=== PATIENT | female | born 1990 | race Caucasian/White ===

== ENCOUNTER 2020-02-22 12:16 | Emergency (ER) | payer SELFPAY ==
[~2020-02-22] VITALS: Ht 160 cm; Wt 93.6 kg
[2020-02-22 12:19] VITALS: BP 120/86
--- NOTE | 2020-02-22 12:40 | NUR ---
TO ROOM AT THIS TIME
--- NOTE | 2020-02-22 12:43 | NUR ---
PT AMBULATED BACK TO ROOM WITHOUT DIFFICULTY. FREQUENT COUGH NOTED.
[2020-02-22 13:22] LABS: BASOPHILS % (AUTO) 1 % (0-1); EOSINOPHILS % (AUTO) 4 % (1-7); LYMPHOCYTES % (AUTO) 20 % (22-44); MEAN CORPUSCULAR HEMOGLOBIN 31.1 pg (27.0-34.8); MEAN CORPUSCULAR HGB CONC 33.9 g/dL (32.4-35.8); MEAN PLATELET VOLUME 8.7 fL (7.4-10.4); MONOCYTES % (AUTO) 7 % (2-9); NEUTROPHILS % (AUTO) 69 % (42-75); PLATELET COUNT 248 x10^3/uL (130-400); RED BLOOD COUNT 4.75 x10^6/uL (3.82-5.3); RED CELL DISTRIBUTION WIDTH 13.5 % (9.6-15.2)
[2020-02-22 13:23] LABS: MD NO
[2020-02-22 13:32] LABS: ALANINE AMINOTRANSFERASE 22 U/L (12-78); ALBUMIN 3.7 g/dL (3.4-5.0); ANION GAP 5 mmol/L (5-15); CALCIUM 8.7 mg/dL (8.5-10.1); CHLORIDE 111 mmol/L (98-107); CREATININE 0.71 mg/dL (0.55-1.02)
[2020-02-22 13:34] LABS: ALKALINE PHOSPHATASE 80 U/L (45-117); BILIRUBIN,TOTAL 0.6 mg/dL (0.2-1.0); TOTAL PROTEIN 7.2 g/dL (6.4-8.2)
[2020-02-22] MEDS ORDERED: ALBUTEROL SULFATE 2.5 MG/3 ML ONE (13:46)
--- NOTE | 2020-02-22 13:49 | NUR ---
pt getting breathing treatment. tolerating well
[2020-02-22] MEDS ORDERED: ALBUTEROL SULFATE 2.5 MG/3 ML NPPB SCH (14:00)
--- NOTE | 2020-02-22 14:38 | NUR ---
PT STATES SHE STILL FEELS SOB, CHEST TIGHTNESS AFTER BREATHING TX. WHEEZING NOTED. SPO2 95-99% ON RA, HR 90s-100s. PT CRYING/ANXIOUS ABOUT HER CONDITION AND HER COUSIN WHO IS CURRENTLY IN ICU. ERP AT NOW FOR RECHECK.
--- NOTE | 2020-02-22 15:09 | NUR ---
PT'S BREATHING WNL NOW BUT PT STILL ANXIOUS/CRYING AT TIMES. D/C INSTRUCTIONS, MEDS & F/U APPT RV'WD WITH PT, SHE VERBALIZES UNDERSTANDING. RX GIVEN X1. INSTRUCTED PT TO RETURN TO ED FOR WORSENING SOB OR OTHER CONCERNING SYMPTOMS. PT AMBULATED OUT WITHOUT DIFFICULTY.
== END 2020-02-22 15:10 | disposition home or self-care (01) ==
LOC: ED 14:51
DX: R06.00 Dyspnea, unspecified (principal); Z20.828 Contact with and (suspected) exposure to other viral communicable diseases; I51.7 Cardiomegaly
CPT/HCPCS: 36415; 71045; 80053; 82728; 82962; 85025; 87635; 93005; 99285; J7613

== ENCOUNTER 2020-08-29 15:28 | Emergency (ER) | payer MEDICAID, OTHER ==
[~2020-08-29] VITALS: Ht 162.6 cm; Wt 81.0 kg
--- NOTE | 2020-08-29 16:08 | NUR ---
crop roller: pt from lobby to room 13
[2020-08-29] MEDS ORDERED: LORazepam 1MG TABLET ONE (16:25)
[2020-08-29] MEDS ORDERED: ALBUTEROL/IPRATROPIUM 2.5MG/0.5MG, 3 ML ONE (16:25)
[2020-08-29] MEDS ORDERED: LORazepam 1MG TABLET PO ONE (16:30)
[2020-08-29] MEDS ORDERED: ALBUTEROL/IPRATROPIUM 2.5MG/0.5MG, 3 ML NPPB ONE (16:30)
--- NOTE | 2020-08-29 16:37 | NUR ---
IN SERVICE COORDINATOR PER JUN. XRAY COMPLETE.
[2020-08-29 16:53] LABS: BASOPHILS % (AUTO) 1 % (0-1); EOSINOPHILS % (AUTO) 3 % (1-7); LYMPHOCYTES % (AUTO) 22 % (22-44); MD NO; MEAN CORPUSCULAR HEMOGLOBIN 31.5 pg (27.0-34.8); MEAN CORPUSCULAR HGB CONC 35.1 g/dL (32.4-35.8); MEAN PLATELET VOLUME 8.4 fL (7.4-10.4); MONOCYTES % (AUTO) 8 % (2-9); NEUTROPHILS % (AUTO) 66 % (42-75); PLATELET COUNT 351 x10^3/uL (130-400); RED BLOOD COUNT 4.86 x10^6/uL (3.82-5.3); RED CELL DISTRIBUTION WIDTH 13.7 % (9.6-15.2)
[2020-08-29 17:02] LABS: ALANINE AMINOTRANSFERASE 24 U/L (12-78); ALBUMIN 3.9 g/dL (3.4-5.0); ANION GAP 5 mmol/L (5-15); CHLORIDE 109 mmol/L (98-107); CREATININE 0.89 mg/dL (0.55-1.02)
[2020-08-29 17:05] LABS: ALKALINE PHOSPHATASE 85 U/L (45-117); BILIRUBIN,TOTAL 0.7 mg/dL (0.2-1.0); TOTAL PROTEIN 7.2 g/dL (6.4-8.2)
--- NOTE | 2020-08-29 17:14 | NUR ---
DIET TRAY ORDERED PER ERP VERBAL ORDER.
[2020-08-29 17:24] VITALS: BP 115/73
--- NOTE | 2020-08-29 17:24 | NUR ---
FORESTRY SUPPORT SPECIALIST PER MAR.
--- NOTE | 2020-08-29 17:24 | NUR ---
PT STATES FEELS A LITTLE BETTER AFTER NEB TX.
--- NOTE | 2020-08-29 17:41 | NUR ---
ALL RESULTS ARE BACK AT THIS TIME. CHART UP FOR RECHECK. DIET TRAY DELIVERED.
== END 2020-08-29 18:31 | disposition home or self-care (01) ==
LOC: ED 17:13
DX: J45.41 Moderate persistent asthma with (acute) exacerbation (principal); R06.00 Dyspnea, unspecified; R07.89 Other chest pain; R00.0 Tachycardia, unspecified
CPT/HCPCS: 36415; 71045; 80053; 85025; 93005; 94640; 99285; J7512

== ENCOUNTER 2020-09-12 23:19 | Emergency (ER) | payer MEDICAID ==
[~2020-09-12] VITALS: Ht 162.6 cm; Wt 81.5 kg
[2020-09-12] MEDS ORDERED: ONDANSETRON 2MG/ML, 2ML ONE (23:52)
[2020-09-12] MEDS ORDERED: MORPHINE SULFATE 4 MG/ML, 1ML ONE (23:52)
[2020-09-12 23:59] LABS: BASOPHILS % (AUTO) 0 % (0-1); EOSINOPHILS % (AUTO) 0 % (1-7); LYMPHOCYTES % (AUTO) 3 % (22-44); MEAN CORPUSCULAR HEMOGLOBIN 31.7 pg (27.0-34.8); MEAN CORPUSCULAR HGB CONC 34.6 g/dL (32.4-35.8); MEAN PLATELET VOLUME 8.3 fL (7.4-10.4); MONOCYTES % (AUTO) 4 % (2-9); NEUTROPHILS % (AUTO) 93 % (42-75); PLATELET COUNT 268 x10^3/uL (130-400); RED BLOOD COUNT 4.93 x10^6/uL (3.82-5.3); RED CELL DISTRIBUTION WIDTH 14.4 % (9.6-15.2)
[2020-09-13] MEDS ORDERED: ONDANSETRON 2MG/ML, 2ML IVPush ONE
[2020-09-13] MEDS ORDERED: MORPHINE SULFATE 4 MG/ML, 1ML IVPush PRN
[2020-09-13 00:09] LABS: ALANINE AMINOTRANSFERASE 32 U/L (12-78); ALBUMIN 3.8 g/dL (3.4-5.0); ANION GAP 8 mmol/L (5-15); CALCIUM 9.1 mg/dL (8.5-10.1); CHLORIDE 103 mmol/L (98-107); CREATININE 0.76 mg/dL (0.55-1.02)
[2020-09-13 00:14] LABS: ALKALINE PHOSPHATASE 93 U/L (45-117); BILIRUBIN,TOTAL 1.2 mg/dL (0.2-1.0)
--- NOTE | 2020-09-13 00:19 | NUR ---
PT TO IMAGING AT THIS TIME
[2020-09-13 00:22] LABS: MD SCAN
[2020-09-13 00:24] LABS: MICROSCOPIC INDICATED
[2020-09-13] MEDS ORDERED: OMNIPAQUE 350 MG/ML, 100ML BOTTLE ONE (00:30)
--- NOTE | 2020-09-13 00:32 | NUR ---
PT BACK FROM IMAGING
[2020-09-13] MEDS ORDERED: CEFDINIR 300 MG CAPSULE PO ONE (01:00)
[2020-09-13] MEDS ORDERED: CEFDINIR 300 MG CAPSULE ONE (01:09)
[2020-09-13] MEDS ORDERED: ACETAMINOPHEN 500 MG TABLET ONE (01:14)
[2020-09-13 01:21] VITALS: BP 125/53
[2020-09-13] MEDS ORDERED: ACETAMINOPHEN 500 MG TABLET PO ONE (01:30)
== END 2020-09-13 01:51 | disposition home or self-care (01) ==
LOC: ED 09-13 01:15
DX: K52.9 Noninfective gastroenteritis and colitis, unspecified (principal); N30.00 Acute cystitis without hematuria; R10.84 Generalized abdominal pain; R11.2 Nausea with vomiting, unspecified; J45.41 Moderate persistent asthma with (acute) exacerbation; F17.210 Nicotine dependence, cigarettes, uncomplicated
CPT/HCPCS: 36415; 74177; 80053; 81001; 83690; 84703; 85025; 87086; 96374; 96375; 99285; 99406; J2270; J2405; Q9967

== ENCOUNTER 2020-09-13 16:56 | Emergency (ER) | payer MEDICAID ==
[~2020-09-13] VITALS: Ht 162.6 cm; Wt 81.1 kg
[2020-09-13 17:05] VITALS: BP 126/75
[2020-09-13] MEDS ORDERED: ALBUTEROL/IPRATROPIUM 2.5MG/0.5MG, 3 ML NPPB ONE (17:30)
[2020-09-13 17:36] LABS: BASOPHILS % (AUTO) 0 % (0-1); EOSINOPHILS % (AUTO) 2 % (1-7); LYMPHOCYTES % (AUTO) 9 % (22-44); MEAN CORPUSCULAR HEMOGLOBIN 31.5 pg (27.0-34.8); MEAN CORPUSCULAR HGB CONC 33.9 g/dL (32.4-35.8); MEAN PLATELET VOLUME 8.6 fL (7.4-10.4); MONOCYTES % (AUTO) 4 % (2-9); NEUTROPHILS % (AUTO) 85 % (42-75); PLATELET COUNT 272 x10^3/uL (130-400); RED BLOOD COUNT 4.79 x10^6/uL (3.82-5.3); RED CELL DISTRIBUTION WIDTH 14.5 % (9.6-15.2)
[2020-09-13 17:42] LABS: ALANINE AMINOTRANSFERASE 39 U/L (12-78); ALBUMIN 3.3 g/dL (3.4-5.0); ANION GAP 8 mmol/L (5-15); CALCIUM 8.8 mg/dL (8.5-10.1); CHLORIDE 105 mmol/L (98-107); CREATININE 0.83 mg/dL (0.55-1.02)
[2020-09-13 17:47] LABS: ALKALINE PHOSPHATASE 111 U/L (45-117); TOTAL PROTEIN 7.4 g/dL (6.4-8.2)
--- NOTE | 2020-09-13 17:50 | NUR ---
CC UA OBTAINED BY RADIOLOGY. COLLECTED AND SENT TO LAB BY TRAUMA THERAPIST
[2020-09-13 18:00] LABS: MD SCAN
[2020-09-13 18:09] LABS: MICROSCOPIC INDICATED
--- NOTE | 2020-09-13 20:36 | NUR ---
HAT BRAIDER: NIL X 1 WHEN CALLED FOR ROOM.
--- NOTE | 2020-09-13 21:09 | NUR ---
CRIB PAD MAKER: NIL X 2 WHEN CALLED FOR ROOM.
--- NOTE | 2020-09-13 21:25 | NUR ---
PROGRAM MEDICAL DIRECTOR: NIL X 3 WHEN CALLED FOR ROOM.
== END 2020-09-13 21:27 | disposition left against medical advice (07) ==
LOC: ED 21:20
DX: R10.30 Lower abdominal pain, unspecified (principal); R07.89 Other chest pain
CPT/HCPCS: 36415; 71045; 80053; 81001; 83880; 84703; 85025; 87086; 93005; 99285

== ENCOUNTER 2020-09-17 09:11 | Emergency (ER) | payer MEDICAID ==
[~2020-09-17] VITALS: Ht 162.6 cm; Wt 79.0 kg
--- NOTE | 2020-09-17 09:30 | NUR ---
PT HAS CO ABDOMINAL FLANK PAIN WORSENING. PREVIOUS UTI AND HAS NOT FILLED ABX.
[2020-09-17] MEDS ORDERED: ONDANSETRON 2MG/ML, 2ML ONE (09:45)
[2020-09-17] MEDS ORDERED: MORPHINE SULFATE 4 MG/ML, 1ML ONE ×2 (09:45→12:06)
[2020-09-17] MEDS: MORPHINE SULFATE 4 MG/ML, 1ML IVPush PRN ×2 (09:52→12:09)
--- NOTE | 2020-09-17 09:56 | NUR ---
IV, LABS, BLOOD CULTURES DRAWN. IVF AND MEDICATED FOR PAIN.
[2020-09-17] MEDS ORDERED: SODIUM CHLORIDE 0.9% 1,000ML IVBOLUS ONE (10:00)
[2020-09-17] MEDS ORDERED: SODIUM CHLORIDE FLUSH 10ML SYR IVF ONE (10:00)
[2020-09-17] MEDS ORDERED: ONDANSETRON 2MG/ML, 2ML IVPush ONE (10:00)
--- NOTE | 2020-09-17 10:03 | NUR ---
PT TO BATHROOM W STEADY GAIT. UA SAMPLE OBTAINED
[2020-09-17 10:06] LABS: BASOPHILS % (AUTO) 1 % (0-1); EOSINOPHILS % (AUTO) 3 % (1-7); LYMPHOCYTES % (AUTO) 23 % (22-44); MEAN CORPUSCULAR HEMOGLOBIN 31.3 pg (27.0-34.8); MEAN CORPUSCULAR HGB CONC 34.5 g/dL (32.4-35.8); MEAN PLATELET VOLUME 7.9 fL (7.4-10.4); MONOCYTES % (AUTO) 8 % (2-9); NEUTROPHILS % (AUTO) 65 % (42-75); PLATELET COUNT 336 x10^3/uL (130-400); RED BLOOD COUNT 4.79 x10^6/uL (3.82-5.3); RED CELL DISTRIBUTION WIDTH 13.7 % (9.6-15.2)
[2020-09-17 10:07] LABS: MD NO
[2020-09-17 10:14] LABS: ALANINE AMINOTRANSFERASE 25 U/L (12-78); ALBUMIN 3.5 g/dL (3.4-5.0); ANION GAP 7 mmol/L (5-15); CALCIUM 9.1 mg/dL (8.5-10.1); CHLORIDE 107 mmol/L (98-107); CREATININE 0.66 mg/dL (0.55-1.02)
[2020-09-17 10:16] LABS: ALKALINE PHOSPHATASE 85 U/L (45-117); BILIRUBIN,TOTAL 0.7 mg/dL (0.2-1.0); TOTAL PROTEIN 7.5 g/dL (6.4-8.2)
--- NOTE | 2020-09-17 10:39 | NUR ---
PT TO IMAGING
[2020-09-17] MEDS ORDERED: OMNIPAQUE 350 MG/ML, 75ML BOTTLE ONE (10:51)
[2020-09-17 10:56] LABS: MICROSCOPIC INDICATED
--- NOTE | 2020-09-17 11:00 | NUR ---
PT BAKC FROM CTA
--- NOTE | 2020-09-17 12:07 | NUR ---
PT HAS CO ABDOMINAL PAIN. MEDICATED PER EMAR
[2020-09-17] MEDS ORDERED: FOSFOMYCIN 3 GM PACKET PO ONE (13:00)
[2020-09-17] MEDS ORDERED: FOSFOMYCIN 3 GM PACKET ONE (13:08)
[2020-09-17 13:13] VITALS: BP 118/84
--- NOTE | 2020-09-17 13:24 | NUR ---
IV removed with tip intact. Patient given discharge instructions and prescription and they have confirmed that they understand the instructions. Patient stable and ambulatory with steady gait from ED to taxi.
== END 2020-09-17 13:25 | disposition home or self-care (01) ==
LOC: ED 09:35
DX: N30.00 Acute cystitis without hematuria (principal); R00.0 Tachycardia, unspecified; F17.200 Nicotine dependence, unspecified, uncomplicated; J45.909 Unspecified asthma, uncomplicated
CPT/HCPCS: 36415; 71045; 71275; 80053; 81001; 83605; 83690; 85025; 85379; 87040; 87086; 96361; 96374; 96375; 96376; 99285; J2270; J2405; J7030; Q9967

== ENCOUNTER 2020-10-04 13:25 | Emergency (ER) | payer MEDICAID ==
[~2020-10-04] VITALS: Ht 157.5 cm; Wt 78.4 kg
--- NOTE | 2020-10-04 14:28 | NUR ---
patient called to recheck vitals @1428 but was not in lobby.
--- NOTE | 2020-10-04 14:56 | NUR ---
PT AMBULATORY TO ROOM FROM [facility], PT CHANGED INTO GOWN, MONITORS IN PLACE. PT C/O NO BM FOR 1 WEEK, PT STATES SHES "ABOUT TO GIVE IN MY BUTT"
--- NOTE | 2020-10-04 15:50 | NUR ---
PT TO IMAGING
--- NOTE | 2020-10-04 16:11 | NUR ---
PT TO BR WITH UPRIGHT STEADY GAIT.
--- NOTE | 2020-10-04 16:21 | NUR ---
PT LAYING ON MANISH GARCIA. CALL LIGHT WITHIN REACH. CHART UP FOR RECHECK
[2020-10-04] MEDS ORDERED: LORazepam 1MG TABLET ONE (16:50)
[2020-10-04] MEDS ORDERED: DIAZEPAM 5 MG TABLET ONE (16:52)
[2020-10-04] MEDS ORDERED: DIAZEPAM 5 MG TABLET PO ONE (17:00)
[2020-10-04 17:01] VITALS: BP 122/63
--- NOTE | 2020-10-04 17:24 | NUR ---
PA AND MED STUDENT AT FOR PROCEDURE
--- NOTE | 2020-10-04 17:42 | NUR ---
Patient given discharge instructions and they have confirmed that they understand the instructions. Patient ambulatory with steady gait.
== END 2020-10-04 17:52 | disposition home or self-care (01) ==
LOC: ED 17:45
DX: K59.00 Constipation, unspecified (principal); R11.2 Nausea with vomiting, unspecified
CPT/HCPCS: 74021; 99284

== ENCOUNTER 2020-12-26 15:12 | Emergency (ER) | payer MEDICAID ==
[~2020-12-26] VITALS: Ht 162.6 cm; Wt 79.5 kg
[2020-12-26] MEDS ORDERED: LIDOCAINE-MPF 1%, 5ML INFIL ONE (15:30)
[2020-12-26 16:04] LABS: BASOPHILS % (AUTO) 1 % (0-1); EOSINOPHILS % (AUTO) 4 % (1-7); LYMPHOCYTES % (AUTO) 9 % (22-44); MEAN CORPUSCULAR HEMOGLOBIN 29.7 pg (27.0-34.8); MEAN CORPUSCULAR HGB CONC 34.1 g/dL (32.4-35.8); MEAN PLATELET VOLUME 8.3 fL (7.4-10.4); MONOCYTES % (AUTO) 5 % (2-9); NEUTROPHILS % (AUTO) 81 % (42-75); PLATELET COUNT 368 x10^3/uL (130-400); RED BLOOD COUNT 4.48 x10^6/uL (3.82-5.3); RED CELL DISTRIBUTION WIDTH 14.2 % (9.6-15.2)
--- NOTE | 2020-12-26 16:50 | NUR ---
slat basket maker helper machine note: Pt to room from lobby.
[2020-12-26] MEDS ORDERED: LIDOCAINE-MPF 1%, 5ML ONE (17:20)
--- NOTE | 2020-12-26 17:30 | NUR ---
LIDOCAINE PROVIDED TO PA. I&D SET UP AT BS. PT REPORTS SHOOTING UP HEROIN AND METH INTO BOTH ARMS AND NECK. PT USING DIRTY NEEDLES. PT VERBALIZES CONCERN FOR HEALTH AND WANTS TO GET HELP FOR SUBSTANCE ABUSE. CALL LIGHT WITHIN REACH. FRIEND AT BS.
[2020-12-26] MEDS ORDERED: CEPHALEXIN 500 MG CAPSULE PO ONE (18:00)
[2020-12-26] MEDS ORDERED: SULFAMETH./TRIMETHOPRIM DS 800MG/160MG TABLET PO ONE (18:00)
[2020-12-26] MEDS ORDERED: SULFAMETH./TRIMETHOPRIM DS 800MG/160MG TABLET ONE (18:06)
[2020-12-26] MEDS ORDERED: CEPHALEXIN 500 MG CAPSULE ONE (18:06)
[2020-12-26 18:57] VITALS: BP 128/78
== END 2020-12-26 18:59 | disposition home or self-care (01) ==
LOC: ED 18:36
DX: L03.221 Cellulitis of neck (principal); L03.114 Cellulitis of left upper limb; F11.129 Opioid abuse with intoxication, unspecified; Z72.9 Problem related to lifestyle, unspecified
CPT/HCPCS: 10061; 36415; 85025; 99284